=== PATIENT | female | born 1990 | race Two or more races ===

== ENCOUNTER 2020-06-11 13:52 | Emergency (ER) | payer SELFPAY ==
[2020-06-11] MEDS ORDERED: Sodium Chloride 0.9% 2.5 ML Syringe FLUSH PRN (14:37)
[2020-06-11] MEDS ORDERED: Sodium Chloride 0.9% 1,000 ML IV ONE (14:37)
[2020-06-11] MEDS ORDERED: Sodium Chloride 0.9% 10 ML Syringe FLUSH PRN (14:37)
--- NOTE | 2020-06-11 14:53 | PCM.EKG ---
#1 Interpretation EKG Date: 06/11/20 Time: 13:53 Rhythm: NSR Rate (Beats/Min): 110 [place]: Normal P-Wave: Present QRS: Normal ST-T: Normal QT: Normal [place]/PQ Interval: 132 Comparison: NA - No Prior EKG EKG Interpretation Comments: non-ischemic, tachycardic, no evidence of right heart strain
[2020-06-11 14:55] LABS: BLOOD UREA NITROGEN,BUN 10 mg/dL (7.0-18.0); CARBON DIOXIDE,CO2 19.8 mmol/L (21.0-32.0); CHLORIDE,CL 103 mmol/L (98-107); GLUCOSE RANDOM 94 mg/dL (74-106); POTASSIUM,K 3.6 mmol/L (3.5-5.1); SODIUM,NA 136 mmol/L (136-145)
--- NOTE | 2020-06-11 15:50 | EDM.PDOC ---
ED HPI GENERAL MEDICAL PROBLEM - General Chief Complaint: Chest Pain Stated Complaint: COVID POSTIVE/CHEST PAIN Time Seen by Provider: 06/11/20 14:15 Source of Information: Reports: Patient History Limitations: Reports: No Limitations - History of Present Illness INITIAL COMMENTS - FREE TEXT/NARRATIVE: HISTORY AND PHYSICAL: History of present illness: Is a 29-year-old female who presents to the ED today with concern of chest pain and shortness of breath that has been ongoing for 3 days. Patient states that she was diagnosed with COVID-19 8 days ago and is supposed to be on quarantine today. Patient states that she is having shortness of breath and chest pain that is worse at night and better throughout the day associated with her COVID- 19. Patient states that she is still coughing and has some had some generalized body aches. Patient states that she is 16 weeks in gestation and follows with Dr. Kate Charles at [facility] and states that she last had an appointment about 2 weeks ago and everything has been normal for her thus far. Patient states this is her first . Patient denies any abdominal pain, cramping, vaginal bleeding, or vaginal discharge. Patient denies any other symptoms or concerns. Patient denies fever, chills, or cough. Denies headache, neck stiff ness, change in vision, syncope, or near syncope. Denies nausea, vomiting, abdominal pain, diarrhea, constipation, or dysuria. Has not noted any blood in urine or stool. Patient has been eating and drinking appropriately. Review of systems: As per history of present illness and below otherwise all systems reviewed and negative. Past medical history: As per history of present illness and as reviewed below otherwise noncontributory. Surgical history: As per history of present illness and as reviewed below otherwise noncontributory. Social history: See social history for further information Family history: As per history of present illness and as reviewed below otherwise noncontributory. Physical exam: General: Patient is alert, oriented, and in no acute distress. Patient sitting comfortably on exam table. Mildly tachycardic 105 on exam. Otherwise, vitally stable. HEENT: Atraumatic, normocephalic, pupils equal and reactive bilaterally, negative for conjunctival pallor or scleral icterus, mucous membranes moist, TMs normal bilaterally, throat clear, neck supple, nontender, trachea midline. No drooling or trismus noted. No meningeal signs. No hot potato voice noted. Lungs: Clear to auscultation, breath sounds equal bilaterally, chest nontender. Heart: S1S2, regular rate and rhythm without overt murmur Abdomen: Soft, nondistended, nontender. Negative for masses or hepatosplenomegaly. Negative for costovertebral tenderness. Pelvis: Stable nontender. Genitourinary: Deferred. Rectal: Deferred. Skin: Intact, warm, dry. No lesions or rashes noted. Extremities: Atraumatic, negative for cords or calf pain. Neurovascular unremarkable. Neuro: Awake, alert, oriented. Cranial nerves II through XII unremarkable. Cerebellum unremarkable. Motor and sensory unremarkable throughout. Exam nonfocal. Notes: FHT at bedside 131. Dr. Jiang verbally involved in patient case. Mildly tachycardic on initial exam. Does resolve with 1 L NS EKG shows no evidence of right heart strain. DDimer mildly elevated. Clinical suspicion low for PE, however, patient offered Ang Chest CT but she declines at this time for radiation concerns during her . She was then offered a 1v CXR with shielding of abdomen and agreeable. All risks vs benefits discussed with patient and expresses understanding. Strict return precautions thoroughly discussed with patient Voices understanding and is agreeable to plan of care. Denies any further questions or concerns at this time. Diagnostics: EKG, CBC, CMP, UA, Trop, Ddimer, 1V CXR Therapeutics: NS Prescription: Augmentin Impression: Community acquired pneumonia Urinary tract infection Plan: 1. Take medication as prescribed. You can use Tylenol as directed for pain and discomfort as this is safe to use in 2. Follow-up with your primary care provider and your women's health provider as discussed. Return to the ED as needed and as discussed. Definitive disposition and diagnosis as appropriate pending reevaluation and review of above. chest Pain Score (Numeric/FACES): 9 - Related Data Allergies Allergy/AdvReac Type Severity Reaction Status Date / Time No Known Allergies Allergy Verified 06/11/20 14:10 Home Meds: Home Meds Amoxicillin/Potassium Clav [Augmentin 875-125 Tablet] 1 each PO BID 7 Days #14 tablet 06/11/20 [Rx] Past Medical History - Past Health History Medical/Surgical History: Denies Medical/Surgical History - Infectious Disease History Infectious Disease History: Reports: Novel Coronavirus Social & Family History - Tobacco Use Tobacco Use Status *Q: Never Tobacco User - Recreational Drug Use Recreational Drug Use: No ED ROS GENERAL - Review of Systems Review Of Systems: Comprehensive ROS is negative, except as noted in HPI. ED EXAM, GENERAL - Physical Exam Exam: See Below (see dictation) Course - Vital Signs Last Recorded V/S: Last Vital Signs Temp 98 F 06/11/20 16:38 Pulse 100 06/11/20 16:38 Resp 16 06/11/20 16:38 BP 92/55 L 06/11/20 16:38 Pulse Ox 100 06/11/20 16:38 Orthostatic Blood Pressure [ 93/55 Standing] Orthostatic Blood Pressure [ 90/54 Sitting] Orthostatic Blood Pressure [ 86/53 Supine] - Orders/Labs/Meds Orders: Active Orders 24 hr Category Date Time Status B-TYPE NATRIURETIC PEPTIDE,BNP [CHEM] Stat Lab 06/11/20 14:11 Received CULTURE URINE [RM] Stat Lab 06/11/20 14:58 Received Saline Lock Insert [OM.PC] Stat Oth 06/11/20 14:37 Ordered Labs: Laboratory Tests 06/11/20 06/11/20 06/11/20 Range/Units 14:11 14:11 14:11 WBC 4.85 (4.0-11.0) K/uL RBC 3.84 L (4.30-5.90) M/uL Hgb 11.9 L (12.0-16.0) g/dL Hct 34.0 L (36.0-46.0) % MCV 88.5 (80.0-98.0) fL MCH 31.0 (27.0-32.0) pg MCHC 35.0 (31.0-37.0) g/dL RDW Std Deviation 38.8 (28.0-62.0) fl RDW Coeff of Jamar 12 (11.0-15.0) % Plt Count 244 (150-400) K/uL MPV 10.10 (7.40-12.00) fL Neut % (Auto) 77.7 (48.0-80.0) % Lymph % (Auto) 15.1 L (16.0-40.0) % [place] % (Auto) 7.2 (0.0-15.0) % Eos % (Auto) 0.0 (0.0-7.0) % Baso % (Auto) 0.0 (0.0-1.5) % Neut # (Auto) 3.8 (1.4-5.7) K/uL Lymph # (Auto) 0.7 (0.6-2.4) K/uL [place] # (Auto) 0.4 (0.0-0.8) K/uL Eos # (Auto) 0.0 (0.0-0.7) K/uL Baso # (Auto) 0.0 (0.0-0.1) K/uL Nucleated RBC % 0.0 /100WBC Nucleated RBCs # 0 K/uL D-Dimer, Quantitative 0.67 H (0.0-0.50) mg/L FEU Sodium 136 (136-145) mmol/L Potassium 3.6 (3.5-5.1) mmol/L Chloride 103 (98-107) mmol/L Carbon Dioxide 19.8 L (21.0-32.0) mmol/L BUN 10 (7.0-18.0) mg/dL Creatinine 0.5 L (0.6-1.0) mg/dL Est Cr Clr Drug Dosing 133.12 mL/min Estimated GFR (MDRD) > 60.0 ml/min Glucose 94 (74-106) mg/dL Calcium 8.5 (8.5-10.1) mg/dL Total Bilirubin 0.4 (0.2-1.0) mg/dL AST 32 (15-37) IU/L ALT 35 (14-63) IU/L Alkaline Phosphatase 60 (46-116) U/L Troponin I < 0.050 (0.000-0.056) ng/mL Total Protein 6.8 (6.4-8.2) g/dL Albumin 2.6 L (3.4-5.0) g/dL Globulin 4.2 H (2.6-4.0) g/dL Albumin/Globulin Ratio 0.6 L (0.9-1.6) Urine Color Urine Appearance Urine pH (5.0-8.0) Ur Specific [place] (1.001-1.035) Urine Protein (NEGATIVE) mg/dL Urine Glucose (UA) (NEGATIVE) mg/dL Urine Ketones (NEGATIVE) mg/dL Urine Occult Blood (NEGATIVE) Urine Nitrite (NEGATIVE) Urine Bilirubin (NEGATIVE) Urine Urobilinogen (<2.0) EU/dL Ur Leukocyte Esterase (NEGATIVE) Urine RBC (0-2/HPF) Urine WBC (0-5/HPF) Ur Epithelial Cells (NONE-FEW) Amorphous Sediment (NEGATIVE) Urine Bacteria (NEGATIVE) Urine Mucus (NONE-MOD) 06/11/20 Range/Units 14:58 WBC (4.0-11.0) K/uL RBC (4.30-5.90) M/uL Hgb (12.0-16.0) g/dL Hct (36.0-46.0) % MCV (80.0-98.0) fL MCH (27.0-32.0) pg MCHC (31.0-37.0) g/dL RDW Std Deviation (28.0-62.0) fl RDW Coeff of Jam[place] (11.0-15.0) % Plt Count (150-400) K/uL MPV (7.40-12.00) fL Neut % (Auto) (48.0-80.0) % Lymph % (Auto) (16.0-40.0) % [place] % (Auto) (0.0-15.0) % Eos % (Auto) (0.0-7.0) % Baso % (Auto) (0.0-1.5) % Neut # (Auto) (1.4-5.7) K/uL Lymph # (Auto) (0.6-2.4) K/uL [place] # (Auto) (0.0-0.8) K/uL Eos # (Auto) (0.0-0.7) K/uL Baso # (Auto) (0.0-0.1) K/uL Nucleated RBC % /100WBC Nucleated RBCs # K/uL D-Dimer, Quantitative (0.0-0.50) mg/L FEU Sodium (136-145) mmol/L Potassium (3.5-5.1) mmol/L Chloride (98-107) mmol/L Carbon Dioxide (21.0-32.0) mmol/L BUN (7.0-18.0) mg/dL Creatinine (0.6-1.0) mg/dL Est Cr Clr Drug Dosing mL/min Estimated GFR (MDRD) ml/min Glucose (74-106) mg/dL Calcium (8.5-10.1) mg/dL Total Bilirubin (0.2-1.0) mg/dL AST (15-37) IU/L ALT (14-63) IU/L Alkaline Phosphatase (46-116) U/L Troponin I (0.000-0.056) ng/mL Total Protein (6.4-8.2) g/dL Albumin (3.4-5.0) g/dL Globulin (2.6-4.0) g/dL Albumin/Globulin Ratio (0.9-1.6) Urine Color YELLOW Urine Appearance CLEAR Urine pH 6.5 (5.0-8.0) Ur Specific [place] 1.020 (1.001-1.035) Urine Protein TRACE H (NEGATIVE) mg/dL Urine Glucose (UA) NEGATIVE (NEGATIVE) mg/dL Urine Ketones >=80 (NEGATIVE) mg/dL Urine Occult Blood NEGATIVE (NEGATIVE) Urine Nitrite NEGATIVE (NEGATIVE) Urine Bilirubin SMALL H (NEGATIVE) Urine Urobilinogen 1.0 (<2.0) EU/dL Ur Leukocyte Esterase TRACE H (NEGATIVE) Urine RBC 0-2 (0-2/HPF) Urine WBC 4-6 (0-5/HPF) Ur Epithelial Cells FEW (NONE-FEW) Amorphous Sediment FEW (NEGATIVE) Urine Bacteria 1+ H (NEGATIVE) Urine Mucus MODERATE (NONE-MOD) Meds: Medications Discontinued Medications Generic Name Dose Route Start Last Admin Trade Name Freq PRN Reason Stop Dose Admin Sodium Chloride 1,000 mls @ 999 mls/hr 06/11/20 14:37 06/11/20 14:43 Normal Saline IV 06/11/20 15:37 999 mls/hr BOLUS ONE Administration Sodium Chloride 2.5 ml 06/11/20 14:37 06/11/20 14:43 Saline Flush FLUSH 2.5 ml ASDIRECTED PRN Administration Keep Vein Open Sodium Chloride 10 ml 06/11/20 14:37 06/11/20 14:43 Saline Flush FLUSH 10 ml ASDIRECTED PRN Administration Keep Vein Open Departure - Departure Time of Disposition: 16:32 Disposition: Home, Self-Care 01 Clinical Impression: Urinary tract infection Qualifiers: Urinary tract infection type: acute cystitis Hematuria presence: without hematuria Qualified Code(s): N30.00 - Acute cystitis without hematuria Community acquired pneumonia Qualifiers: Laterality: unspecified laterality Qualified Code(s): J18.9 - Pneumonia, unspecified organism - Discharge Information Prescriptions: Amoxicillin/Potassium Clav [Augmentin 875-125 Tablet] 1 each PO BID 7 Days #14 tablet Instructions: Urinary Tract Infection, Adult, [id number] Referrals: PCP,None [Primary Care Provider] - Forms: ED Department Discharge Additional Instructions: The following information is given to patients seen in the emergency department who are being discharged to home. This information is to outline your options for follow-up care. We provide all patients seen in our emergency department with a follow-up referral. The need for follow-up, as well as the timing and circumstances, are variable depending upon the specifics of your emergency department visit. If you don't have a primary care physician on staff, we will provide you with a referral. We always advise you to contact your personal physician following an emergency department visit to inform them of the circumstance of the visit and for follow-up with them and/or the need for any referrals to a consulting specialist. The emergency department will also refer you to a specialist when appropriate. This referral assures that you have the opportunity for follow-up care with a specialist. All of these measure are taken in an effort to provide you with optimal care, which includes your follow-up. Under all circumstances we always encourage you to contact your private physician who remains a resource for coordinating your care. When calling for follow-up care, please make the office aware that this follow-up is from your recent emergency room visit. If for any reason you are refused follow-up, please contact the [facility] Emergency Department at and asked to speak to the emergency department charge nurse. [facility] [address] [place] [address] [facility] [address] [place] [address] [facility] [address] [place] [id number] 1. Take medication as prescribed. You can use Tylenol as directed for pain and discomfort as this is safe to use in 2. Follow-up with your primary care provider and your women's health provider as discussed. Return to the ED as needed and as discussed. Sepsis Event Note (ED) - Evaluation Sepsis Screening Result: No Definite Risk - Focused Exam Vital Signs: Vital Signs Temp Pulse Resp BP Pulse Ox 06/11/20 16:38 98 F 100 16 92/55 L 100 06/11/20 13:57 98 F 112 H 16 87/52 L 97 - My Orders Last 24 Hours: My Active Orders 06/11/20 14:11 B-TYPE NATRIURETIC PEPTIDE,BNP [CHEM] Stat 06/11/20 14:37 Saline Lock Insert [OM.PC] Stat 06/11/20 14:58 CULTURE URINE [RM] Stat - Assessment/Plan Last 24 Hours: My Active Orders 06/11/20 14:11 B-TYPE NATRIURETIC PEPTIDE,BNP [CHEM] Stat 06/11/20 14:37 Saline Lock Insert [OM.PC] Stat 06/11/20 14:58 CULTURE URINE [RM] Stat
--- NOTE | 2020-06-11 16:24 | CR ---
Indication: Pain/shortness of breath Comparison: None available. Technique: Single AP view chest Findings: There are questionable patchy airspace opacities in the peripheral lung bases which may represent developing infiltrates. There is no pneumothorax or pleural effusion. The cardiomediastinal silhouette is within normal limits. The bony thorax is grossly intact. Impression: Patchy airspace opacities in the peripheral bilateral lung bases which may represent developing infiltrates. Dictated by Edgardo Hermosillo MD @ Jun 11 2020 4:21PM Signed by Dr. Edgardo Hermosillo @ Jun 11 2020 4:22PM
== END 2020-06-11 16:41 | disposition home or self-care (01) ==
LOC: MW.ED 13:52
DX: O99.512 Diseases of the respiratory system complicating pregnancy, second trimester (principal); J18.9 Pneumonia, unspecified organism; O23.12 Infections of bladder in pregnancy, second trimester; Z3A.16 16 weeks gestation of pregnancy
CPT/HCPCS: 36415; 71045; 80053; 81001; 83880; 84484; 85025; 85379; 87086; 93005; 99285; J7030; 93010; 99284

== ENCOUNTER 2020-11-18 15:38 | Inpatient (IN) | payer SELFPAY ==
[2020-11-18] MEDS: Lactated Ringers 1,000 ML IV SCH ×2 (16:00→18:00)
[2020-11-18] MEDS ORDERED: Nalbuphine 10 MG/1 ML Vial IVPUSH PRN (16:10)
[2020-11-18] MEDS ORDERED: Carboprost Tromethamine 250 MCG/1 ML Amp IM PRN (16:10)
[2020-11-18] MEDS ORDERED: Tranexamic Acid 1,000 MG in Sodium Chloride 0.9% 100 ML IV PRN (16:10)
[2020-11-18] MEDS ORDERED: Methylergonovine 0.2 MG/1 ML Amp IM PRN (16:10)
[2020-11-18] MEDS ORDERED: Butorphanol 1 MG/ML SDV IVPUSH PRN (16:10)
[2020-11-18] MEDS ORDERED: Sodium Chloride 0.9% 10 ML Syringe FLUSH PRN (16:10)
[2020-11-18] MEDS ORDERED: Sodium Chloride 0.9% 2.5 ML Syringe FLUSH PRN (16:10)
[2020-11-18] MEDS ORDERED: Lidocaine 1% 50 ML MDV INJECT PRN (16:10)
[2020-11-18] MEDS ORDERED: Misoprostol 200 MCG Tab PO PRN (16:10)
[2020-11-18] MEDS ORDERED: Water For Irrigation,Sterile 1,000 ML Container IRR PRN (16:10)
[2020-11-18] MEDS ORDERED: Sodium Chloride 0.9% 10 ML SDV IV PRN (16:10)
[2020-11-18] MEDS ORDERED: Oxytocin/0.9 % Sodium Chloride 30 UNIT/500 ML BAG IV SCH (16:15)
[2020-11-18] MEDS ORDERED: Ampicillin 2 GM in Sodium Chloride 0.9% 100 ML IV ONE (16:30)
[2020-11-18] MEDS ORDERED: Ampicillin 2 GM Vial ONE (16:32)
[2020-11-18] MEDS ORDERED: Ropivacaine HCl/PF 200 ML ONE (17:37)
[2020-11-18] MEDS ORDERED: Bupivacaine 0.25% 10 ML SDV ONE (17:37)
--- NOTE | 2020-11-18 18:09 | PCM.PREANE ---
Preanesthetic Assessment - Anesthesia/Transfusion/Family Hx Anesthesia History: No Prior Anesthesia Family History of Anesthesia Reaction: No - Review of Systems General: No Symptoms Pulmonary: No Symptoms Cardiovascular: No Symptoms Gastrointestinal: No Symptoms Neurological: No Symptoms Other: Reports: None - Physical Assessment ASA Class: 2 Mental Status: Alert & Oriented x3 Airway Class: Mallampati = 3 Dentition: Reports: Normal Dentition ROM/Head Extension: Full Lungs: Clear to Auscultation, Normal Respiratory Effort Cardiovascular: Regular Rate, Regular Rhythm - Lab Values: Laboratory Last Values WBC 13.48 K/uL (4.0-11.0) H 11/18/20 16:00 RBC 3.89 M/uL (4.30-5.90) L 11/18/20 16:00 Hgb 12.0 g/dL (12.0-16.0) 11/18/20 16:00 Hct 34.7 % (36.0-46.0) L 11/18/20 16:00 MCV 89.2 fL (80.0-98.0) 11/18/20 16:00 MCH 30.8 pg (27.0-32.0) 11/18/20 16:00 MCHC 34.6 g/dL (31.0-37.0) 11/18/20 16:00 RDW Std Deviation 41.5 fl (28.0-62.0) 11/18/20 16:00 RDW Coeff of Jamar 13 % (11.0-15.0) 11/18/20 16:00 Plt Count 257 K/uL (150-400) 11/18/20 16:00 MPV 10.70 fL (7.40-12.00) 11/18/20 16:00 Nucleated RBC % 0.0 /100WBC 11/18/20 16:00 Nucleated RBCs # 0 K/uL 11/18/20 16:00 SARS-CoV-2 RNA (FELICIA) NEGATIVE (NEGATIVE) 11/18/20 16:00 - Allergies Allergies/Adverse Reactions: Allergies Allergy/AdvReac Type Severity Reaction Status Date / Time No Known Allergies Allergy Verified 06/11/20 14:10 - Blood Blood Available: Yes Product(s) Available: PRBC - Anesthesia Plan Pre-Op Medication Ordered: None - Acknowledgements Anesthesia Type Planned: Epidural Pt an Appropriate Candidate for the Planned Anesthesia: Yes Alternatives and Risks of Anesthesia Discussed w Pt/Guardian: Yes Pt/Guardian Understands and Agrees with Anesthesia Plan: Yes PreAnesthesia Questionnaire - Past Health History Medical/Surgical History: Denies Medical/Surgical History - Infectious Disease History Infectious Disease History: Reports: Novel Coronavirus - HOME MEDS Home Medications: Home Meds Amoxicillin/Potassium Clav [Augmentin 875-125 Tablet] 1 each PO BID 7 Days #14 tablet 06/11/20 [Rx] - CURRENT (IN HOUSE) MEDS Current Meds: Current Medications Butorphanol Tartrate (Butorphanol 1 Mg/Ml Sdv) 1 mg IVPUSH Q1H PRN PRN Reason: Pain (severe 7-10) Carboprost Tromethamine (Carboprost Tromethamine 250 Mcg/1 Ml Amp) 250 mcg IM ASDIRECTED PRN PRN Reason: Post Hemorrhage Oxytocin/Sodium Chloride (Oxytocin 30 Unit/500 Ml-Ns) 30 unit in 500 mls @ 999 mls/hr IV TITRATE HEIDE Tranexamic Acid 1,000 mg/ (Sodium Chloride) 110 mls @ 660 mls/hr IV ONETIME PRN PRN Reason: Bleeding Ampicillin Sodium 1 gm/ Sodium (Chloride) 50 mls @ 100 mls/hr IV Q4H HEIDE Lactated Ringer's (Ringers, Lactated) 1,000 mls @ 150 mls/hr IV ASDIRECTED HEIDE Last Admin: 11/18/20 18:00 Dose: 150 mls/hr Documented by: Lidocaine HCl (Lidocaine 1% 50 Ml Mdv) 50 ml INJECT ONETIME PRN PRN Reason: Laceration repair Methylergonovine Maleate (Methylergonovine 0.2 Mg/1 Ml Amp) 0.2 mg IM ASDIRECTED PRN PRN Reason: Post Hemorrhage Misoprostol (Misoprostol 200 Mcg Tab) 200 mcg PO ONETIME PRN PRN Reason: Post Hemorrhage Nalbuphine HCl (Nalbuphine 10 Mg/1 Ml Vial) 10 mg IVPUSH Q1H PRN PRN Reason: Pain (severe 7-10) Sodium Chloride (Sodium Chloride 0.9% 10 Ml Syringe) 10 ml FLUSH ASDIRECTED PRN PRN Reason: Keep Vein Open Sodium Chloride (Sodium Chloride 0.9% 2.5 Ml Syringe) 2.5 ml FLUSH ASDIRECTED PRN PRN Reason: Keep Vein Open Sodium Chloride (Sodium Chloride 0.9% 10 Ml Sdv) 10 ml IV ASDIRECTED PRN PRN Reason: IV Use Sterile Water (Water For Irrigation,Sterile 1,000 Ml Container) 1,000 ml IRR ASDIRECTED PRN PRN Reason: delivery Discontinued Medications Ampicillin Sodium (Ampicillin 2 Gm Vial) Confirm Administered Dose 2 gm .ROUTE .STK-MED ONE Stop: 11/18/20 16:33 Bupivacaine HCl (Bupivacaine 0.25% 10 Ml Sdv) Confirm Administered Dose 10 ml .ROUTE .STK-MED ONE Stop: 11/18/20 17:38 Ampicillin Sodium 2 gm/ Sodium (Chloride) 100 mls @ 200 mls/hr IV ONETIME ONE Stop: 11/18/20 16:59 Last Admin: 11/18/20 16:44 Dose: 200 mls/hr Documented by: Ropivacaine (Naropin 0.2%) Confirm Administered Dose 200 mls @ as directed .ROUTE .STK-MED ONE Stop: 11/18/20 17:38 - Pre-Procedure Checklist Attending Provider Aware: Yes Chart Reviewed: Yes Consent Signed: Yes Labs Reviewed: Yes VS/FHR Reviewed: Yes Patient Identification Confirmation Method: Reports: Verbal Patient Pt an Appropriate Candidate for the Planned Anesthesia: Yes Alternatives and Risks of Anesthesia Discussed w Pt/Guardian: Yes - Procedure Procedure Start Date: 11/18/20 Procedure Start Time: 17:[address]: Reports: Blood Pressure, Heart Rate, SPO2 Functional IV: Yes Safety Measures: Reports: Patient Identified, Procedure Verified, Site Verified, Procedure Time Out Patient Position: Reports: Sitting Prep: Reports: Betadine x3, Sterile Drape Local Anesthetic: Reports: Intradermal Wheal w Lidocaine 1% Regional Placement Level: Reports: L3-4 Needle: Reports: 17 g Touhy Approach: Reports: Midline Technique: Reports: NETTE Plastic Syringe Parasthesia: Reports: None Fluid Obtained: Reports: None Test Dose Time: 17:48 Test Dose Medication: Reports: Lidocaine 1.5% w Epinephrine 1:200,000 Test Dose Response: Reports: Negative Loading Dose Time: 17:45 Loading Dose Medication: bupivicaine 0.25% 10cc Loading Dose Patient Position: sitting Continuous Infusion Start Time: 17:55 Continuous Infusion Medication: ropivicaine 0.2% Continuous Infusion Rate: 16 Continuous Infusion PCS Bolus Option: 4 VS and FHR Monitored in Unit Post Placement: Yes Procedure End Date: 11/18/20 Procedure End Time: 18:40
[2020-11-18] MEDS ORDERED: Ampicillin 1 GM in Sodium Chloride 0.9% 50 ML IV SCH (20:30)
--- NOTE | 2020-11-18 20:45 | PCM.LDHP ---
L&D History of Present Illness - General Date of Service: 11/18/20 Admit Problem/Dx: Patient Status Order with Admit Dx/Problem 11/18/20 16:10 Patient Status [ADT] Routine Admission Diagnosis/Problem Admission Diagnosis/Problem Source of Information: Patient, RN History Limitations: Reports: No Limitations - Related Data Allergies/Adverse Reactions: Allergies Allergy/AdvReac Type Severity Reaction Status Date / Time No Known Allergies Allergy Verified 06/11/20 14:10 Home Medications: Home Meds Pnv No.95/Ferrous Fum/Folic AC [ Caplet] 1 each PO DAILY 11/18/20 [History] Past Medical History - Past Health History Medical/Surgical History: Denies Medical/Surgical History - Infectious Disease History Infectious Disease History: Reports: Chicken Pox, Novel Coronavirus Social & Family History - Family History Family Medical History: No Pertinent Family History - Tobacco Use Tobacco Use Status *Q: Never Tobacco User Second Hand Smoke Exposure: No - Caffeine Use Caffeine Use: Reports: None - Recreational Drug Use Recreational Drug Use: No H&P Review of Systems - Review of Systems: General: Reports: No Symptoms HEENT: Reports: No Symptoms Pulmonary: Reports: No Symptoms Cardiovascular: Reports: No Symptoms Gastrointestinal: Reports: No Symptoms Genitourinary: Reports: No Symptoms Musculoskeletal: Reports: No Symptoms Skin: Reports: No Symptoms Psychiatric: Reports: No Symptoms Neurological: Reports: No Symptoms Hematologic/Lymphatic: Reports: No Symptoms Immunologic: Reports: No Symptoms L&D Exam - Exam Exam: See Below - OB Specific Contraction Intensity: Strong Movement: Active Heart Tones: Present Heart Tones per Min: 130 Heart Rate (FHR) Variability: Moderate (6-25 bpm) - Exam General: Alert, Oriented Psychiatric: Alert, Normal Affect, Normal Mood - Patient Data Lab Results Last 24 hrs: Laboratory Results - last 24 hr 11/18/20 11/18/20 11/18/20 Range/Units 16:00 16:00 16:00 WBC 13.48 H (4.0-11.0) K/uL RBC 3.89 L (4.30-5.90) M/uL Hgb 12.0 (12.0-16.0) g/dL Hct 34.7 L (36.0-46.0) % MCV 89.2 (80.0-98.0) fL MCH 30.8 (27.0-32.0) pg MCHC 34.6 (31.0-37.0) g/dL RDW Std Deviation 41.5 (28.0-62.0) fl RDW Coeff of Jamar 13 (11.0-15.0) % Plt Count 257 (150-400) K/uL MPV 10.70 (7.40-12.00) fL Nucleated RBC % 0.0 /100WBC Nucleated RBCs # 0 K/uL SARS-CoV-2 RNA (FELICIA) NEGATIVE (NEGATIVE) Blood Type O NEGATIVE Antibody Screen NEGATIVE Result Diagrams: 11/18/20 16:00 Orders Last 24hrs: Active Orders 24 hr Category Date Time Status Patient Status [ADT] Routine ADT 11/18/20 16:10 Active Heart Tones [RC] CONTINUOUS Care 11/18/20 16:10 Active Non Stress Test [RC] PER UNIT ROUTINE Care 11/18/20 16:10 Active Insert Urinary Catheter [OM.PC] PRN Care 11/18/20 16:15 Ordered May Shower [RC] ASDIRECTED Care 11/18/20 16:10 Active Notify Provider [RC] PRN Care 11/18/20 16:10 Active Up ad Stephany [RC] ASDIRECTED Care 11/18/20 16:10 Active Urinary Catheter Assessment [RC] ASDIRECTED Care 11/18/20 16:12 Active Vaginal Exam [RC] PRN Care 11/18/20 16:10 Active Vital Signs [RC] PER UNIT ROUTINE Care 11/18/20 16:10 Active Clear Liquid Diet [DIET] Diet 11/18/20 Dinner Active RPR (SYPHILIS SERO) W/ RFLX [REF] Routine Lab 11/18/20 16:00 Received Ampicillin 1 gm Med 11/18/20 20:30 Active Sodium Chloride 0.9% [Normal Saline] 50 ml IV Q4H Butorphanol [Stadol] Med 11/18/20 16:10 Active 1 mg IVPUSH Q1H PRN Carboprost Tromethamine [Hemabate DS] Med 11/18/20 16:10 Active 250 mcg IM ASDIRECTED PRN Lactated Ringers [Ringers, Lactated] 1,000 ml Med 11/18/20 16:15 Active IV ASDIRECTED Lidocaine 1% [Xylocaine 1%] Med 11/18/20 16:10 Active 50 ml INJECT ONETIME PRN Methylergonovine [Methergine] Med 11/18/20 16:10 Active 0.2 mg IM ASDIRECTED PRN Nalbuphine [Nubain] Med 11/18/20 16:10 Active 10 mg IVPUSH Q1H PRN Oxytocin/0.9 % Sodium Chloride [Oxytocin 30 Unit/500 ML Med 11/18/20 16:15 Active -NS] 30 unit in 500 ml IV TITRATE Sodium Chloride 0.9% [Normal Saline] Med 11/18/20 16:10 Active 10 ml IV ASDIRECTED PRN Sodium Chloride 0.9% [Saline Flush] Med 11/18/20 16:10 Active 10 ml FLUSH ASDIRECTED PRN Sodium Chloride 0.9% [Saline Flush] Med 11/18/20 16:10 Active 2.5 ml FLUSH ASDIRECTED PRN Tranexamic Acid [Cyklokapron] 1,000 mg Med 11/18/20 16:10 Active Sodium Chloride 0.9% [Normal Saline] 100 ml IV ONETIME Water For Irrigation,Sterile [Sterile Water for Med 11/18/20 16:10 Active Irrigation] 1,000 ml IRR ASDIRECTED PRN miSOPROStoL [Cytotec] Med 11/18/20 16:10 Active 200 mcg PO ONETIME PRN Scalp Electrode [WOMSER] Per Unit Routine Oth 11/18/20 16:10 Ordered Peripheral IV Insertion Adult [OM.PC] Routine Oth 11/18/20 16:10 Ordered Resuscitation Status Routine Resus Stat 11/18/20 16:10 Ordered Medication Orders Butorphanol Tartrate (Butorphanol 1 Mg/Ml Sdv) 1 mg IVPUSH Q1H PRN PRN Reason: Pain (severe 7-10) Carboprost Tromethamine (Carboprost Tromethamine 250 Mcg/1 Ml Amp) 250 mcg IM ASDIRECTED PRN PRN Reason: Post Hemorrhage Oxytocin/Sodium Chloride (Oxytocin 30 Unit/500 Ml-Ns) 30 unit in 500 mls @ 999 mls/hr IV TITRATE [facility] Tranexamic Acid 1,000 mg/ (Sodium Chloride) 110 mls @ 660 mls/hr IV ONETIME PRN PRN Reason: Bleeding Ampicillin Sodium 1 gm/ Sodium (Chloride) 50 mls @ 100 mls/hr IV Q4H [facility] Last Admin: 11/18/20 20:30 Dose: 100 mls/hr Documented by: LING Lactated Ringer's (Ringers, Lactated) 1,000 mls @ 150 mls/hr IV ASDIRECTED [facility] Last Admin: 11/18/20 18:00 Dose: 150 mls/hr Documented by: Infusion: 11/18/20 18:00 Dose: 150 mls/hr Documented by: Admin: 11/18/20 16:00 Dose: 150 mls/hr Documented by: DEANNE Lidocaine HCl (Lidocaine 1% 50 Ml Mdv) 50 ml INJECT ONETIME PRN PRN Reason: Laceration repair Methylergonovine Maleate (Methylergonovine 0.2 Mg/1 Ml Amp) 0.2 mg IM ASDIRECTED PRN PRN Reason: Post Hemorrhage Misoprostol (Misoprostol 200 Mcg Tab) 200 mcg PO ONETIME PRN PRN Reason: Post Hemorrhage Nalbuphine HCl (Nalbuphine 10 Mg/1 Ml Vial) 10 mg IVPUSH Q1H PRN PRN Reason: Pain (severe 7-10) Sodium Chloride (Sodium Chloride 0.9% 10 Ml Syringe) 10 ml FLUSH ASDIRECTED PRN PRN Reason: Keep Vein Open Sodium Chloride (Sodium Chloride 0.9% 2.5 Ml Syringe) 2.5 ml FLUSH ASDIRECTED PRN PRN Reason: Keep Vein Open Sodium Chloride (Sodium Chloride 0.9% 10 Ml Sdv) 10 ml IV ASDIRECTED PRN PRN Reason: IV Use Sterile Water (Water For Irrigation,Sterile 1,000 Ml Container) 1,000 ml IRR ASDIRECTED PRN PRN Reason: delivery
[2020-11-19] MEDS ORDERED: oxyCODONE 5 MG Tab PO PRN (00:47)
[2020-11-19] MEDS ORDERED: Docusate Sodium 100 MG Cap PO PRN (00:47)
[2020-11-19] MEDS ORDERED: Ibuprofen 800 MG Tab PO PRN (00:47)
[2020-11-19] MEDS ORDERED: Lanolin 100% Cream 7 GM Tube TOP PRN (00:47)
[2020-11-19] MEDS ORDERED: Acetaminophen 500 MG Tab PO PRN (00:47)
[2020-11-19] MEDS ORDERED: Ibuprofen 400 MG Tab PO PRN (00:47)
[2020-11-19] MEDS ORDERED: Bisacodyl 10 MG Supp RECTAL PRN (00:47)
--- NOTE | 2020-11-19 00:51 | PCM.DEL ---
L & D Note - General Info Date of Service: 11/19/20 - Delivery Note Labor: Spontaneous Delivery Outcome: Livebirth Delivery Method: Spontaneous Vaginal Delivery-Single Delivery Mode: Spontaneous Presentation: Left Occiput Anterior (MARIELOS) Nuchal Cord: None Anesthesia Type: Epidural Amniotic Fluid Description: Clear Laceration: Vaginal Suture type: Vicryl Suture size: 3-0 Placenta: Spontaneous Cord: 3 Vessels Estimated Blood Loss: 200 Resuscitation Needed: No : Bulb Syringe Score 1 min: 8 Score 5 min: 9 Second Stage Interventions: Reports: Pushing Effectively - General Info Date of Service: 11/19/20 Functional Status: Reports: Pain Controlled - Patient Data I&O - Last 24 Hours: Intake & Output 11/18/20 11/18/20 11/19/20 14:59 22:59 06:59 Intake Total 1100 Balance 1100 Lab Results Last 24 Hours: Laboratory Results - last 24 hr 11/18/20 11/18/20 11/18/20 Range/Units 16:00 16:00 16:00 WBC 13.48 H (4.0-11.0) K/uL RBC 3.89 L (4.30-5.90) M/uL Hgb 12.0 (12.0-16.0) g/dL Hct 34.7 L (36.0-46.0) % MCV 89.2 (80.0-98.0) fL MCH 30.8 (27.0-32.0) pg MCHC 34.6 (31.0-37.0) g/dL RDW Std Deviation 41.5 (28.0-62.0) fl RDW Coeff of Jamar 13 (11.0-15.0) % Plt Count 257 (150-400) K/uL MPV 10.70 (7.40-12.00) fL Nucleated RBC % 0.0 /100WBC Nucleated RBCs # 0 K/uL SARS-CoV-2 RNA (FELICIA) NEGATIVE (NEGATIVE) Blood Type O NEGATIVE Antibody Screen NEGATIVE Med Orders - Current: Current Medications Butorphanol Tartrate (Butorphanol 1 Mg/Ml Sdv) 1 mg IVPUSH Q1H PRN PRN Reason: Pain (severe 7-10) Carboprost Tromethamine (Carboprost Tromethamine 250 Mcg/1 Ml Amp) 250 mcg IM ASDIRECTED PRN PRN Reason: Post Hemorrhage Oxytocin/Sodium Chloride (Oxytocin 30 Unit/500 Ml-Ns) 30 unit in 500 mls @ 999 mls/hr IV TITRATE [facility] Tranexamic Acid 1,000 mg/ (Sodium Chloride) 110 mls @ 660 mls/hr IV ONETIME PRN PRN Reason: Bleeding Ampicillin Sodium 1 gm/ Sodium (Chloride) 50 mls @ 100 mls/hr IV Q4H [facility] Last Admin: 11/18/20 20:30 Dose: 100 mls/hr Documented by: Lactated Ringer's (Ringers, Lactated) 1,000 mls @ 150 mls/hr IV ASDIRECTED [facility] Last Admin: 11/18/20 18:00 Dose: 150 mls/hr Documented by: Lidocaine HCl (Lidocaine 1% 50 Ml Mdv) 50 ml INJECT ONETIME PRN PRN Reason: Laceration repair Methylergonovine Maleate (Methylergonovine 0.2 Mg/1 Ml Amp) 0.2 mg IM ASDIRECTED PRN PRN Reason: Post Hemorrhage Misoprostol (Misoprostol 200 Mcg Tab) 200 mcg PO ONETIME PRN PRN Reason: Post Hemorrhage Nalbuphine HCl (Nalbuphine 10 Mg/1 Ml Vial) 10 mg IVPUSH Q1H PRN PRN Reason: Pain (severe 7-10) Sodium Chloride (Sodium Chloride 0.9% 10 Ml Syringe) 10 ml FLUSH ASDIRECTED PRN PRN Reason: Keep Vein Open Sodium Chloride (Sodium Chloride 0.9% 2.5 Ml Syringe) 2.5 ml FLUSH ASDIRECTED PRN PRN Reason: Keep Vein Open Sodium Chloride (Sodium Chloride 0.9% 10 Ml Sdv) 10 ml IV ASDIRECTED PRN PRN Reason: IV Use Sterile Water (Water For Irrigation,Sterile 1,000 Ml Container) 1,000 ml IRR ASDIRECTED PRN PRN Reason: delivery Discontinued Medications Ampicillin Sodium (Ampicillin 2 Gm Vial) Confirm Administered Dose 2 gm .ROUTE .STK-MED ONE Stop: 11/18/20 16:33 Bupivacaine HCl (Bupivacaine 0.25% 10 Ml Sdv) Confirm Administered Dose 10 ml .ROUTE .STK-MED ONE Stop: 11/18/20 17:38 Ampicillin Sodium 2 gm/ Sodium (Chloride) 100 mls @ 200 mls/hr IV ONETIME ONE Stop: 11/18/20 16:59 Last Admin: 11/18/20 16:44 Dose: 200 mls/hr Documented by: Ropivacaine (Naropin 0.2%) Confirm Administered Dose 200 mls @ as directed .ROUTE .STK-MED ONE Stop: 11/18/20 17:38 - Exam Urinary Catheter Total Time: 0Days 1Hours - Problem List Review Problem List Initiated/Reviewed/Updated: Yes - Assessment Assessment:: 29 yo day 0. - Plan Plan:: Uncomplicated delivery. Routine care
--- NOTE | 2020-11-19 02:38 | OR ---
SURGEON: Maury Kohli MD DATE OF PROCEDURE: 11/19/2020 INDICATION FOR PROCEDURE: This is a 29-year-old, G1, P0, at 39 weeks and 1 day, who presented with spontaneous labor. The patient began to have regular contractions at home. After arriving to Labor and Delivery, she was found to be 4 cm dilated with intact membranes. She was damian regularly. She is GBS positive and received ampicillin for GBS prophylaxis. She is O-negative blood type, and received RhoGAM in the second trimester. She otherwise had an uncomplicated . The patient desired an epidural for pain control, which she received. Category 1 tracing. She continued to progress on her own. She had spontaneous rupture of membranes with clear fluid, then became fully dilated with urge to push. PREOPERATIVE DIAGNOSES: 1. [place] intrauterine at 39 weeks and 1 day. 2. Active labor. POSTOPERATIVE DIAGNOSES: 1. [place] intrauterine at 39 weeks and 1 day. 2. Active labor. PROCEDURE PERFORMED: Normal spontaneous vaginal delivery, repair of vaginal laceration. TOWER OPERATOR: Yadira Ponce MS-4. ANESTHESIOLOGIST: Dr. Stevan Durham. ANESTHESIA: Epidural. FINDINGS: Viable male , scores of 8 and 9. weight of 3700g. ESTIMATED BLOOD LOSS: 200 mL. DESCRIPTION OF PROCEDURE: The patient pushed with contractions for approximately 1 hour with good descent. head delivered in the occiput anterior position over an intact perineum, restituted LOT. Anterior shoulder delivered easily followed by the posterior shoulder and remaining body. The baby was placed on the maternal chest and evaluated by awaiting nursery staff. The baby was pink, crying, and moving all extremities immediately after delivery. The perineum was examined and she had a superficial vaginal laceration at the perineum and on the left labia, which was repaired with interrupted stitches of 3-0 Vicryl. Hemostasis was confirmed after the repair. The umbilical cord was clamped and cut after about 10 minutes. The umbilical cord gases were obtained. The placenta was removed with gentle traction on the umbilical cord. It was examined and found to be intact with 3-vessel cord. Fundal massage was performed and the bleeding was light. The patient tolerated the procedure well, was given care instructions. JEREMÍAS / MANUEL /[id number] DEMETRIO
[2020-11-19] MEDS: Witch Hazel Medicated Pads 40/Jar TOP PRN (06:39)
[2020-11-19] MEDS: Benzocaine/Menthol 20%-0.5% Spray 78 GM Cannister TOP PRN (06:40)
[2020-11-19] MEDS: Acetaminophen 500 MG Tab PO PRN ×2 (09:42→17:07)
--- NOTE | 2020-11-20 07:21 | PCM.PNPP ---
- General Info Date of Service: 11/20/20 Subjective Update: Patient is doing well this morning. Moderate lochia, minimal pain. Functional Status: Reports: Pain Controlled, Tolerating Diet, Ambulating, Urinating - Review of Systems General: Reports: No Symptoms HEENT: Reports: No Symptoms Pulmonary: Reports: No Symptoms Cardiovascular: Reports: No Symptoms Gastrointestinal: Reports: No Symptoms Genitourinary: Reports: No Symptoms Musculoskeletal: Reports: No Symptoms Skin: Reports: No Symptoms Neurological: Reports: No Symptoms Psychiatric: Reports: No Symptoms - Patient Data Vital Signs - Most Recent: Last Vital Signs Temp 36.4 C 11/20/20 06:00 Pulse 74 11/20/20 06:00 Resp 17 11/20/20 06:00 BP 110/64 11/20/20 06:00 Pulse Ox 98 11/20/20 06:00 Weight - Most Recent: 62.823 kg Lab Results - Last 24 Hours: Laboratory Results - last 24 hr 11/18/20 11/19/20 11/19/20 Range/Units 16:00 00:19 00:19 Hgb (12.0-16.0) g/dL Hct (36.0-46.0) % Cord ABG pH 7.310 (7.18-7.38) Cord ABG Base Excess -7 (-10--2) Cord VBG pH 7.269 (7.25-7.45) Cord VBG Base Excess -8 (-10--2) Antibody Screen NEGATIVE Screen (NEGATIVE) RhIG Candidate? Rhogam Indicated 11/19/20 11/20/20 Range/Units 01:15 06:39 Hgb 11.5 L (12.0-16.0) g/dL Hct 33.3 L (36.0-46.0) % Cord ABG pH (7.18-7.38) Cord ABG Base Excess (-10--2) Cord VBG pH (7.25-7.45) Cord VBG Base Excess (-10--2) Antibody Screen Screen NEGATIVE (NEGATIVE) RhIG Candidate? YES Rhogam Indicated YES, BABY RH POS H Med Orders - Current: Current Medications Acetaminophen (Acetaminophen 500 Mg Tab) 500 mg PO Q4H PRN PRN Reason: Pain (mild 1-3) Acetaminophen (Acetaminophen 500 Mg Tab) 1,000 mg PO Q4H PRN PRN Reason: Pain (mild 1-3) Last Admin: 11/19/20 17:07 Dose: 1,000 mg Documented by: Benzocaine/Menthol (Benzocaine/Menthol 20%-0.5% [place] 78 Gm Cannister) 78 gm TOP ASDIRECTED PRN PRN Reason: Perineal Comfort Measure Last Admin: 11/19/20 06:40 Dose: 1 canister Documented by: Bisacodyl (Bisacodyl 10 Mg Supp) 10 mg RECTAL ONETIME PRN PRN Reason: Constipation Docusate Sodium (Docusate Sodium 100 Mg Cap) 100 mg PO Q12H PRN PRN Reason: Constipation Emollient Ointment (Lanolin 100% Cream 7 Gm Tube) 0 gm TOP ASDIRECTED PRN PRN Reason: Sore Nipples Ibuprofen (Ibuprofen 400 Mg Tab) 400 mg PO Q4H PRN PRN Reason: Pain (mild 1-3) Ibuprofen (Ibuprofen 800 Mg Tab) 800 mg PO Q6H PRN PRN Reason: Pain (mild 1-3) Last Admin: 11/19/20 06:38 Dose: 800 mg Documented by: Oxycodone HCl (Oxycodone 5 Mg Tab) 5 mg PO Q2H PRN PRN Reason: Pain (severe 7-10) Sodium Chloride (Sodium Chloride 0.9% 10 Ml Syringe) 10 ml FLUSH ASDIRECTED PRN PRN Reason: Keep Vein Open Sodium Chloride (Sodium Chloride 0.9% 2.5 Ml Syringe) 2.5 ml FLUSH ASDIRECTED PRN PRN Reason: Keep Vein Open Sodium Chloride (Sodium Chloride 0.9% 10 Ml Sdv) 10 ml IV ASDIRECTED PRN PRN Reason: IV Use Witch Antonia (Witch Antonia Medicated Pads 40/Jar) 1 pad TOP ASDIRECTED PRN PRN Reason: comfort care Last Admin: 11/19/20 06:39 Dose: 1 tub Documented by: Discontinued Medications Ampicillin Sodium (Ampicillin 2 Gm Vial) Confirm Administered Dose 2 gm .ROUTE .STK-MED ONE Stop: 11/18/20 16:33 Bupivacaine HCl (Bupivacaine 0.25% 10 Ml Sdv) Confirm Administered Dose 10 ml .ROUTE .STK-MED ONE Stop: 11/18/20 17:38 Butorphanol Tartrate (Butorphanol 1 Mg/Ml Sdv) 1 mg IVPUSH Q1H PRN PRN Reason: Pain (severe 7-10) Carboprost Tromethamine (Carboprost Tromethamine 250 Mcg/1 Ml Amp) 250 mcg IM ASDIRECTED PRN PRN Reason: Post Hemorrhage Oxytocin/Sodium Chloride (Oxytocin 30 Unit/500 Ml-Ns) 30 unit in 500 mls @ 999 mls/hr IV TITRATE [facility] Tranexamic Acid 1,000 mg/ (Sodium Chloride) 110 mls @ 660 mls/hr IV ONETIME PRN PRN Reason: Bleeding Ampicillin Sodium 2 gm/ Sodium (Chloride) 100 mls @ 200 mls/hr IV ONETIME ONE Stop: 11/18/20 16:59 Last Admin: 11/18/20 16:44 Dose: 200 mls/hr Documented by: Ampicillin Sodium 1 gm/ Sodium (Chloride) 50 mls @ 100 mls/hr IV Q4H [facility] Last Admin: 11/18/20 20:30 Dose: 100 mls/hr Documented by: Lactated Ringer's (Ringers, Lactated) 1,000 mls @ 150 mls/hr IV ASDIRECTED [facility] Last Admin: 11/18/20 18:00 Dose: 150 mls/hr Documented by: Ropivacaine (Naropin 0.2%) Confirm Administered Dose 200 mls @ as directed .ROUTE .STK-MED ONE Stop: 11/18/20 17:38 Lidocaine HCl (Lidocaine 1% 50 Ml Mdv) 50 ml INJECT ONETIME PRN PRN Reason: Laceration repair Methylergonovine Maleate (Methylergonovine 0.2 Mg/1 Ml Amp) 0.2 mg IM ASDIRECTED PRN PRN Reason: Post Hemorrhage Misoprostol (Misoprostol 200 Mcg Tab) 200 mcg PO ONETIME PRN PRN Reason: Post Hemorrhage Nalbuphine HCl (Nalbuphine 10 Mg/1 Ml Vial) 10 mg IVPUSH Q1H PRN PRN Reason: Pain (severe 7-10) Sterile Water (Water For Irrigation,Sterile 1,000 Ml Container) 1,000 ml IRR ASDIRECTED PRN PRN Reason: delivery - Infant Interaction Disposition, : [place] in Room with Family Interaction: Holding Infant Feeding: Breastfed Infant; Nursed Well Support Person: Significant Other - Recovery Exam Fundal Tone: Firm Fundal Level: At Umbilicus Fundal Placement: Midline Lochia Amount: Scant Lochia Color: Rubra/Red Bladder Status: Voiding Urinary Elimination: Voided - Exam General: Alert, Oriented Neck: Supple Lungs: Normal Respiratory Effort GI/Abdominal Exam: Soft, Non-Tender, No Distention Extremities: No Pedal Edema Skin: Warm, Dry, Intact Neurological: No New Focal Deficit Psy/Mental Status: Alert, Normal Affect, Normal Mood - Problem List & Annotations (1) Vaginal delivery SNOMED Code(s): 856609289 Code(s): O80 - ENCOUNTER FOR FULL-TERM UNCOMPLICATED DELIVERY Status: Acute Current Visit: Yes - Problem List Review Problem List Initiated/Reviewed/Updated: Yes - My Orders Last 24 Hours: My Active Orders 11/20/20 07:19 Ready for Discharge [RC] PER UNIT ROUTINE - Assessment Assessment:: 29 yo day 1. - Plan Plan:: Plan to discharge home today. Reviewed discharge instructions/precautions, all questions answered.
[2020-11-20] MEDS: Witch Hazel Medicated Pads 40/Jar TOP PRN (13:43)
[2020-11-20] MEDS: Acetaminophen 500 MG Tab PO PRN (13:43)
[2020-11-20] MEDS: Benzocaine/Menthol 20%-0.5% Spray 78 GM Cannister TOP PRN (13:44)
== END 2020-11-20 14:45 | disposition home or self-care (01) | DRG 807 ==
LOC: MW.OBCHECK 15:38 → MW.OB 15:40 → MW.OBCHECK 16:10 → MW.OB 16:10 → OBSVTOIN 11-19 00:19 → MW.OB 11-19 07:28
PROVIDERS: ADMIT Obstetrics & Gynecology; ATTEND Obstetrics & Gynecology
PROC: 10E0XZZ Delivery of Products of Conception, External Approach (ICD-10-PCS; principal; 2020-11-19)
PROC: 0UQGXZZ Repair Vagina, External Approach (ICD-10-PCS; 2020-11-19)
PROC: 3E0R3BZ Introduction of Anesthetic Agent into Spinal Canal, Percutaneous Approach (ICD-10-PCS; 2020-11-19)
PROC: 00HU33Z Insertion of Infusion Device into Spinal Canal, Percutaneous Approach (ICD-10-PCS; 2020-11-19)
DX: O99.824 Streptococcus B carrier state complicating childbirth (principal); Z37.0 Single live birth; Z3A.39 39 weeks gestation of pregnancy; O70.0 First degree perineal laceration during delivery
CPT/HCPCS: 01967; 36415; 51702; 59025; 59409; 82803; 85014; 85018; 85027; 85460; 86592; 86850; 86900; 86901; A9270-GY; J0290; J2790; J2795; J3490; J7120; U0002

== ENCOUNTER 2022-02-18 15:14 | Emergency (ER) | payer SELFPAY ==
[2022-02-18] MEDS ORDERED: Ketorolac 60 MG/2 ML SDV IM ONE (17:23)
== END 2022-02-18 18:47 | disposition home or self-care (01) ==
LOC: MW.ED 15:14
DX: S01.511A Laceration without foreign body of lip, initial encounter (principal); S40.022A Contusion of left upper arm, initial encounter; Z86.16 Personal history of COVID-19; Y04.0XXA Assault by unarmed brawl or fight, initial encounter
CPT/HCPCS: 73060; 96372; 99283; J1885